=== PATIENT | female | born 1955 | race Caucasian/White ===

== ENCOUNTER 2017-02-14 22:20 | Inpatient (IN) | payer OTHER ==
[~2017-02-14] VITALS: Ht 162.6 cm; Wt 39.0 kg
--- NOTE | 2017-02-14 22:00 | NUR ---
Admitted patient in a stable condition from [facility]. Dx: L hip fracture, S/P ORIF. No acute distress, no complaints of pain at this time. Able to make needs known. Alert and oriented. Kept in a comfortable position. Call light within reach. Admission assessment started. Dr. Jenkins and [facility] made aware. Will continue to monitor.
[2017-02-14] MEDS ORDERED: MAGN30OR PO (23:27)
[2017-02-14] MEDS ORDERED: HYDR-3326 PO (23:27)
[2017-02-14] MEDS ORDERED: ONDA4TAB10 IVP (23:27)
[2017-02-14] MEDS ORDERED: ACET-73 PO (23:27)
[2017-02-14] MEDS ORDERED: PANT40TA4 PO (23:27)
[2017-02-14] MEDS ORDERED: ENOX40DI SQ (23:27)
[2017-02-14] MEDS ORDERED: ZOLP5TAB8 PO (23:27)
[2017-02-14] MEDS ORDERED: MORP15TA IV (23:27)
[2017-02-15] VITALS (12 sets, daily range): BP systolic 114–144; BP diastolic 75–99
[2017-02-15] MEDS ORDERED: ACETAMINOPHEN 325 MG TABLET PO PRN
[2017-02-15] MEDS ORDERED: ZOLPIDEM 5 MG TABLET PO PRN
[2017-02-15] MEDS ORDERED: BLOO-360 IN (02:37)
--- NOTE | 2017-02-15 06:56 | NUR ---
Patient went back to sleep with no s/s of distress. No complaints of pain. Slept well during the shift. Incision, amputation photos taken and placed in chart. Snacks offered. VS, including BS monitored. Frequent checks done. Due meds given. Needs attended. Call light kept within reach. Kept comfortable. Endorsed accordingly.
[2017-02-15 07:27] LABS: BASOPHILS % (AUTO) 0.4 % (0.0-2.0); EOSINOPHILS # (AUTO) 0.1 K/uL (0.0-0.7); EOSINOPHILS % (AUTO) 1.1 % (0.0-7.0); HEMOGLOBIN 7.2 G/DL (12.0-16.0); LYMPHOCYTES # (AUTO) 1.3 K/UL (0.8-4.8); LYMPHOCYTES % (AUTO) 28.6 % (20.5-51.5); MEAN CORPUSCULAR HEMOGLOBIN 29.7 UUG (27.0-31.0); MEAN CORPUSCULAR HGB CONC 34 g/dL (32.0-37.0); MEAN CORPUSCULAR VOLUME 88.1 FL (81.0-99.0); MONOCYTES # (AUTO) 0.4 K/UL (0.1-1.30); MONOCYTES % (AUTO) 8.7 % (0.0-11.0); NEUTROPHILS # (AUTO) 2.8 K/UL (1.8-8.9); NEUTROPHILS % (AUTO) 61.2 % (38.5-71.5); PLATELET COUNT (AUTO) 219 K/UL (150-450); WHITE BLOOD COUNT (AUTO) 4.6 K/UL (4.0-11.2)
[2017-02-15 07:28] LABS: HEMATOCRIT 21.3 % (37-47); RED BLOOD CELL COUNT(AUTO) 2.41 MIL/UL (4.2-5.4)
--- NOTE | 2017-02-15 07:28 | NUR ---
Critical result of Hemoglobin 7.[address] Lopez was called waiting for call back.
--- NOTE | 2017-02-15 07:45 | NUR ---
Received new orders from Dr. Lopez to transfuse 2 units of PRBC and Hold Lovenox for today, Mod Sliding scale with Humalin regular insulin.
[2017-02-15 07:48] LABS: CREATININE 0.7 mg/dL (0.6-1.3); MAGNESIUM 1.9 mg/dL (1.8-2.4); PHOSPHOROUS 2.9 mg/dL (2.5-4.9); POTASSIUM 3.6 mmol/L (3.5-5.1)
[2017-02-15] MEDS ORDERED: INSULIN REGULAR, HUMAN 300 UNIT/3 ML VIAL SQ SCH (08:15)
--- NOTE | 2017-02-15 08:21 | NUR ---
Received pt in bed, a/ox3, No respiratory distress noted. HOB elevated, Left hip surgical dressing clean, intact and patent. No s/s of bleeding at site noted. Call light within reach. Pt educated on plan for the day.
[2017-02-15] MEDS: PANTOPRAZOLE SODIUM 40 MG TABLET.DR PO SCH (08:35)
[2017-02-15] MEDS ORDERED: ENOXAPARIN SODIUM 40 MG/0.4 ML DISP.SYRIN SQ SCH (09:00)
[2017-02-15] MEDS ORDERED: INSULIN REGULAR, HUMAN 300 UNIT/3 ML VIAL SQ PRN (09:30)
[2017-02-15] MEDS: BLOOD SUGAR DIAGNOSTIC 1 EACH STRIP VI SCH ×4 (09:30→21:54)
[2017-02-15] MEDS ORDERED: DEXTROSE 50% 50 ML DISP.SYRIN IV PRN (09:30)
[2017-02-15] MEDS ORDERED: INSULIN REGULAR, HUMAN 300 UNITS/3 ML VIAL SQ PRN (09:30)
--- NOTE | 2017-02-15 11:37 | NUR ---
IV 20G started on right hand, pt tolerated well. Daughter is at bedside updated on plan of care and blood transfusion order.
--- NOTE | 2017-02-15 13:48 | NUR ---
Pt ambulating with physical therapy. No distress noted.
--- NOTE | 2017-02-15 15:30 | NUR ---
No urine output noted. Noted with bladder distension. Bladder scan show 750ml. Obtain order for straight cath, 900ml clear yellow urine output. Will con't to monitor for retention.
--- NOTE | 2017-02-15 15:50 | NUR ---
First unit of PRBC initiated, verified with 2nd RN. Vital signs checked per protocol. No adverse reaction noted. Will con't to monitor. Daughter is at bedside.
--- NOTE | 2017-02-15 18:27 | NUR ---
First unit of Blood completed, Pt tolerated well. No adverse reaction noted. v/s done per protocol.
--- NOTE | 2017-02-15 18:52 | NUR ---
2nd unit of blood started, verified by 2nd RN, vital signs taken per protocol. Pt c/o of nause prior to transfusion. Order obtain for Zofran by dr. Lopez
--- NOTE | 2017-02-15 19:10 | NUR ---
RECEIVED PATIENT IN BED ALERT ORIENTED, BLOOD TRANSFUSION IN PROGRESS, NO ADVERSE REACTION NOTED, NO COUGHING NO CONGESTION NOTED, V/S STABLE CONT TO MONITOR.
--- NOTE | 2017-02-15 19:11 | NUR ---
1908 vital signs wnl see Blood transfusion record. Dr. Lopez in to assess pt. Notified of pt c/o of constipation. Wilcox cath 16 fr. inserted as order. Daughter is at bedside. discussed plan of care with pt and daughter.
--- NOTE | 2017-02-15 21:23 | NUR ---
TRANSFUSION DONE WITH NO ADVERSE REACTION NOTED, NO COUGHING, NO CONGESTION NOTED, CONT TO MONITOR.
[2017-02-15 22:30] LABS: *BILIRUBIN,URIN NEGATIVE (NEGATIVE); *BLOOD, URINE 2+ (NEGATIVE); *COLOR,URINE YELLOW (YELLOW); *KETONES,URINE NEGATIVE (NEGATIVE); *PROTEIN,URINE TRACE (NEGATIVE); *UROBILINOGEN,URINE 0.2 E.U./dl (NORMAL); LEUKOCYTE ESTERASE ,URINE TRACE (NEGATIVE); NITRITE, URINE NEGATIVE (NEGATIVE); UGLUCOSE NEGATIVE (NEGATIVE)
[2017-02-15 22:44] LABS: *CLARITY,URINE HAZY (CLEAR)
[2017-02-15 22:48] LABS: YEAST,URINE MANY /HPF (NONE SEEN)
[2017-02-15 22:49] LABS: MUCUS,URINE MODERATE /LPF (0-FEW)
[2017-02-15] MEDS: PROMETHAZINE HCL 25 MG SUPP.RECT RC PRN (22:54)
[2017-02-15] MEDS: POTASSIUM CHLORIDE 20 MEQ in IV D5 1/2 NS 1000 ML 1,000 ML IV PRN (22:54)
--- NOTE | 2017-02-15 22:54 | NUR ---
PATIENT VOMITED APPROX. 300CC UNDIGESTED FOOD, UNABLE HOLD FOOD, GIVEN PHENERGAN SUPP WITH HELP AFTER HOUR, NO FURTHER EPISODE OF VOMITING NOTED AT THIS TIME. CONT TO MONITOR.
[2017-02-15] MEDS ORDERED: PROMETHAZINE HCL 25 MG SUPP.RECT RC ONE (22:57)
--- NOTE | 2017-02-15 23:11 | NUR ---
NOTIFY DR. PEREZ THAT PATIENT VOMITTING, UNABLE TO HOLD FOOD OR FLUIDS, AND ALSO BLOOD SUGAR RUNNING LOW 66-68, HAS NEW ORDER.
[2017-02-16] MEDS: PANTOPRAZOLE SODIUM 40 MG TABLET.DR PO SCH (06:34)
[2017-02-16] MEDS: BLOOD SUGAR DIAGNOSTIC 1 EACH STRIP VI SCH ×4 (06:34→20:31)
[2017-02-16 07:36] LABS: BASOPHILS % (AUTO) 0.6 % (0.0-2.0); EOSINOPHILS % (AUTO) 0.5 % (0.0-7.0); HEMOGLOBIN 11.6 G/DL (12.0-16.0); LYMPHOCYTES # (AUTO) 1.4 K/UL (0.8-4.8); LYMPHOCYTES % (AUTO) 27.5 % (20.5-51.5); MEAN CORPUSCULAR HEMOGLOBIN 29.7 UUG (27.0-31.0); MEAN CORPUSCULAR HGB CONC 34 g/dL (32.0-37.0); MEAN CORPUSCULAR VOLUME 86.8 FL (81.0-99.0); MONOCYTES # (AUTO) 0.5 K/UL (0.1-1.30); MONOCYTES % (AUTO) 9.6 % (0.0-11.0); NEUTROPHILS % (AUTO) 61.8 % (38.5-71.5); PLATELET COUNT (AUTO) 220 K/UL (150-450); RED BLOOD CELL COUNT(AUTO) 3.92 MIL/UL (4.2-5.4); WHITE BLOOD COUNT (AUTO) 4.9 K/UL (4.0-11.2)
[2017-02-16] MEDS ORDERED: IOHEXOL 300MG/ML 100 ML INFUS..BTL ONE (07:36)
[2017-02-16] MEDS ORDERED: BARIUM SULFATE 450 ML ORAL.SUSP ONE (07:36)
[2017-02-16] MEDS ORDERED: IV NORMAL SALINE 250 ML IV ONE (07:36)
--- NOTE | 2017-02-16 07:45 | NUR ---
PATIENT AWAKE, VERBALLY RESPONSIVE, CONT NPO, ON HYDRATION TOLERATE WELL, NO COUGHING, NO CONGESTION NOTED, NO COMPLAIN OF PAIN AT THIS TIME, LEFT HIP DRESSING INTACT, CONSENT OBTAINED FROM THE PATIENT. FOR CT SCAN TODAY, ENDORSED TO NEXT SHIFT
--- NOTE | 2017-02-16 08:00 | NUR ---
RECEIVED PATIENT AWAKE, ALERT AND ORIENTED. NO COMPLAINTS OF PAIN NOTED. NO S/S OF DISTRESS. WITH ONGOING D5NS KCL 20 MEQ INFUSING 70CC/HR ON LEFT HAND G 20. WITH PATENT INTACT IFC DRAINING TO YELLOW COLORED URINE. NO VOMITING NOTED. ENCOURAGED TO MAINTAIN NPO STATUS. INSTRUCTED BY FIELD APPRAISER TO CONSUME BARIUM TOLERATED. FOR CT SCAN OF ABDOMEN WITH CONTRAST AT 10 AM.
[2017-02-16 08:09] LABS: CREATININE 0.7 mg/dL (0.6-1.3)
[2017-02-16 08:12] LABS: THYROID STIMULATING HORMONE 0.95 mIU/mL (0.358-3.740)
[2017-02-16 08:26] LABS: BILIRUBIN,TOTAL 0.8 mg/dL (0.2-1.0); MAGNESIUM 1.7 mg/dL (1.8-2.4); PHOSPHOROUS 2.6 mg/dL (2.5-4.9); POTASSIUM 3.6 mmol/L (3.5-5.1); TOTAL PROTEIN, SERUM 5.7 g/dL (6.4-8.2)
[2017-02-16 08:39] VITALS: BP 131/87
--- NOTE | 2017-02-16 12:00 | NUR ---
BACK TO ARU FROM CT SCAN. ACCOMPANIED BY HOSPITAL STAFF VIA WHEEL CHAIR. ABLE TO TOLERATE LUNCH, NO NAUSEA OR VOMITING NOTED.
--- NOTE | 2017-02-16 12:10 | NUR ---
COMPLAINED OF PAIN ON LOWER EXTREMITIES RATED 6/10. TYLENOL PRN GIVEN.
[2017-02-16] MEDS ORDERED: MAGNESIUM OXIDE 400 MG TABLET PO ONE (15:00)
[2017-02-16] MEDS: POTASSIUM CHLORIDE 20 MEQ in IV D5 1/2 NS 1000 ML 1,000 ML IV PRN (16:38)
--- NOTE | 2017-02-16 18:12 | NUR ---
No complaints of pain at the moment. Able to eat dinner at least 30%. No complaints of nausea during meals. Was able to tolerate therapy well. With Intact Wilcox Catheter. Patent IVF infusing well 70 cc/hr.
[2017-02-16] MEDS ORDERED: Z GUARD REMEDY PASTE 57 GM TUBE TOP PRN (19:00)
--- NOTE | 2017-02-16 19:45 | NUR ---
RECEIVED PATIENT AWAKE IN BED WITH FAMILY AT BEDSIDE. PATIENT IS A/O X4. TAJIK SPEAKING BUT ABLE TO MAKE SIMPLE NEEDS KNOWN. PER DAUGHTER, PATIENT DENIES ANY PAIN OR DISCOMFORT. PATIENT JUST COMPLAINS OF NOT BEING ABLE TO HAVE A BOWEL MOVEMENT. PATIENT IS DRINKING PRUNE JUICE. VS WNL. DRESSING NOTED TO LEFT HIP, DRY AND INTACT. NEURO-VASCULAR CHECKS WNL. NO RESP. DISTRESS NOTED. IVF INFUSING WELL TO LEFT HAND #20 GAUGE. BED ALARM ON. CALL LIGHT IN REACH. ALL NEEDS ATTENDED. WILL CONTINUE TO MONITOR.
[2017-02-16 20:11] VITALS: BP 121/81
[2017-02-16] MEDS ORDERED: FLUCONAZOLE 200 MG/100 ML PIGGYBACK ONE (23:38)
[2017-02-16] MEDS: FLUCONAZOLE 200 MG/NS 100ML IV 100 MG in PREMIXED 1 EACH IV SCH (23:57)
--- NOTE | 2017-02-16 23:57 | NUR ---
Patient with new orders for Diflucan 100mg IV piggyback. Orders noted and carried out. Patient given Diflucan 100mg IV as ordered per MD. Tolerated well. IV patent and intact. No infiltration noted. Kept clean and dry. All needs attended to promptly. Call light within reach. Will continue to monitor.
--- NOTE | 2017-02-17 05:48 | NUR ---
PATIENT ASLEEP IN BED. EASILY AROUSABLE. DENIES PAIN OR DISCOMFORT. NO FACIAL GRIMACE NOTED. DRESSING NOTED TO LEFT HIP, C/D/I. NO RESP. DISTRESS NOTED. IVF INFUSING WELL. F/C INTACT AND DRAINING WELL. BED ALARM ON. CALL LIGHT IN REACH. ALL NEEDS ATTENDED. WILL CONTINUE TO MONITOR.
[2017-02-17] MEDS: PANTOPRAZOLE SODIUM 40 MG TABLET.DR PO SCH (06:29)
[2017-02-17] MEDS: BLOOD SUGAR DIAGNOSTIC 1 EACH STRIP VI SCH ×4 (06:31→22:22)
[2017-02-17] MEDS: HYDROCODONE/APAP 5-325MG TABLET PO PRN (06:34)
--- NOTE | 2017-02-17 07:46 | NUR ---
Received patient awake, alert and oriented. Not in any form of distress. With patent, intact Wilcox draining to yellow colored urine. With IVF infusing well over L hand G20. Encouraged to eat breakfast. Call light within reach.
[2017-02-17] MEDS: POTASSIUM CHLORIDE 20 MEQ in IV D5 1/2 NS 1000 ML 1,000 ML IV PRN (07:51)
[2017-02-17] MEDS ORDERED: CYANOCOBALAMIN 1000 MCG/ML VIAL IM SCH (09:00)
[2017-02-17 09:14] VITALS: BP 123/85
--- NOTE | 2017-02-17 10:31 | NUR ---
Complained of pain over left hip rated as 6/10. Tylenol PRN given. Tolerated occupational therapy. Resumed IVF
[2017-02-17 12:09] LABS: VIT D, 25-HYDROXY 12.3 ng/mL (30.0-100.0)
--- NOTE | 2017-02-17 15:00 | NUR ---
IV INFILTRATED, STARTED NEW IV LINE ON RIGHT FOREARM. PATENT, IVF INFUSING WELL. FAMILY AT BEDSIDE.
--- NOTE | 2017-02-17 17:15 | NUR ---
Seen and examined by John Huizar. Informed Dr. Lopez of no BM for 4 days, no recommendations for stool softeners at this time, contemplating to refer patient for a Gastro Evaluation for possible EGD/Colonoscopy.
[2017-02-17] MEDS: ONDANSETRON 4 MG/2 ML VIAL IV PRN (17:41)
--- NOTE | 2017-02-17 17:56 | NUR ---
Vomited 1x previously ingested food. Nausea present. No complaints of abdominal pain. PRN Zofran given.
--- NOTE | 2017-02-17 19:48 | NUR ---
Patient noted in a stable condition.report received from Latha Bucio .patient noted resting in bed,patient will continue to be monitored at this time .
[2017-02-17 20:24] VITALS: BP 128/90
[2017-02-17] MEDS: FLUCONAZOLE 200 MG/NS 100ML IV 100 MG in PREMIXED 1 EACH IV SCH (22:25)
--- NOTE | 2017-02-17 22:40 | NUR ---
RECEIVED PATIENT LAYING COMFORTABLY IN BED. NO ACUTE DISTRESS NOTED. SAFETY INITIATED. CALL LIGHT WITHIN REACH. WILL CONTINUE TO MONITOR.
[2017-02-18] MEDS: POTASSIUM CHLORIDE 20 MEQ in IV D5 1/2 NS 1000 ML 1,000 ML IV PRN ×2 (01:51→19:24)
[2017-02-18] MEDS: PANTOPRAZOLE SODIUM 40 MG TABLET.DR PO SCH (06:14)
--- NOTE | 2017-02-18 06:37 | NUR ---
NO CHANGES T/O SHIFT. NO ACUTE DISTRESS NOTED. SAFETY AND COMFORT MEASURES MAINTAINED T/O SHIFT. ALL NEEDS MET. ALL MEDS GIVEN ORDERED. COTTER CARE PROVIDED.
[2017-02-18 08:25] VITALS: BP 135/91
[2017-02-18] MEDS: CYANOCOBALAMIN 1000 MCG/ML VIAL IM SCH (08:57)
[2017-02-18] MEDS: ONDANSETRON 4 MG/2 ML VIAL IV PRN (12:02)
--- NOTE | 2017-02-18 12:30 | NUR ---
pt had an episode of vomiting while eating. pt provided zofran iv. will reassess from complications.
[2017-02-18] MEDS: CHOLECALCIFEROL 1,000 UNIT TABLET PO SCH (12:33)
--- NOTE | 2017-02-18 13:00 | NUR ---
pt still had persistent nausea. pt seen by employment consultant. employment consultant recommended boost. pt states that she is worried she might throw up again and is afraid of eating because of it. informed patient that antiemetic is available. pt educated about malnutrition and verbalizes understanding. md also called for constipation. md ferro states for further monitoring.
--- NOTE | 2017-02-18 19:41 | NUR ---
pt had episodes of vomity. pt given meds as prescribed. pt did therapy and tolerated. pt no signs of acute distress. comfort meausres and air mattress provided. will continue to endorse new orders to night shift supervisor nurse.
[2017-02-18 20:00] VITALS: BP 125/86
--- NOTE | 2017-02-18 20:00 | NUR ---
RECEIVED PATIENT AWAKE IN BED WITH FAMILY AT BEDSIDE. PATIENT IS A/O X4. FRENCH SPEAKING BUT ABLE TO MAKE NEEDS KNOWN. PATIENT DENIES PAIN OR DISCOMFORT. PT DOES C/O SLIGHT NAUSEA BUT DENIES THE NEED FOR ANY ZOFRAN AT THIS TIME. VS WNL. IVF INFUSING WELL TO RIGHT FA #20 GAUGE. DRESSING NOTED TO LEFT HIP, C/D/I. REDNESS NOTED TO SACRAL AREA, MEPILEX IN PLACE AND PATIENT IS ON AIR MATTRESS FOR PRESSURE RELIEF. PATIENT IS ON RA. BED ALARM ON. PATIENT MADE COMFORTABLE. CALL LIGHT IN REACH. ALL NEEDS ATTENDED. WILL CONTINUE TO MONITOR.
[2017-02-18] MEDS: FLUCONAZOLE 200 MG/NS 100ML IV 100 MG in PREMIXED 1 EACH IV SCH (22:30)
[2017-02-18] MEDS: HYDROCODONE/APAP 5-325MG TABLET PO PRN (23:04)
--- NOTE | 2017-02-19 00:15 | NUR ---
PATIENT ASLEEP IN BED. EASILY AROUSABLE. PATIENT REPOSITIONED TO SIDE FOR COMFORT. BILATERAL HEELS OFF-LOADED FOR PRESSURE RELIEF. DRESSINGS NOTED TO LEFT HIP, CHANGED. MEPILEX NOTED TO SACRUM, CHANGED AND Z-GUARD APPLIED. PATIENT MADE COMFORTABLE. BED ALARM ON. CALL LIGHT IN REACH. ALL NEEDS ATTENDED.
[2017-02-19] MEDS ORDERED: BISACODYL 10 MG SUPP.RECT RC PRN (00:30)
[2017-02-19] MEDS: HYDROCODONE/APAP 5-325MG TABLET PO PRN (06:06)
[2017-02-19] MEDS: PANTOPRAZOLE SODIUM 40 MG TABLET.DR PO SCH (06:06)
--- NOTE | 2017-02-19 06:16 | NUR ---
PATIENT AWAKE IN BED. C/O PAIN IN LEFT HIP. REPOSITIONED TO SIDE FOR COMFORT AND PRESSURE RELIEF. PATIENT GIVEN NORCO 1 TAB PO PRN FOR PAIN. SLEPT WELL THROUGHOUT THE NIGHT. BED ALARM ON. CALL LIGHT IN REACH. ALL NEEDS ATTENDED. WILL CONTINUE TO MONITOR.
[2017-02-19 07:02] LABS: BASOPHILS % (AUTO) 0.5 % (0.0-2.0); EOSINOPHILS % (AUTO) 0.6 % (0.0-7.0); HEMATOCRIT 36.6 % (37-47); HEMOGLOBIN 12.1 G/DL (12.0-16.0); LYMPHOCYTES # (AUTO) 1.3 K/UL (0.8-4.8); LYMPHOCYTES % (AUTO) 32.1 % (20.5-51.5); MEAN CORPUSCULAR HEMOGLOBIN 28.8 UUG (27.0-31.0); MEAN CORPUSCULAR HGB CONC 33 g/dL (32.0-37.0); MEAN CORPUSCULAR VOLUME 86.9 FL (81.0-99.0); MONOCYTES # (AUTO) 0.3 K/UL (0.1-1.30); MONOCYTES % (AUTO) 7.4 % (0.0-11.0); NEUTROPHILS # (AUTO) 2.5 K/UL (1.8-8.9); NEUTROPHILS % (AUTO) 59.4 % (38.5-71.5); PLATELET COUNT (AUTO) 270 K/UL (150-450); RED BLOOD CELL COUNT(AUTO) 4.21 MIL/UL (4.2-5.4); WHITE BLOOD COUNT (AUTO) 4.1 K/UL (4.0-11.2)
[2017-02-19 07:10] VITALS: BP 141/82
[2017-02-19 07:42] LABS: BILIRUBIN,TOTAL 0.7 mg/dL (0.2-1.0); CREATININE 0.7 mg/dL (0.6-1.3); MAGNESIUM 1.7 mg/dL (1.8-2.4); PHOSPHOROUS 2.7 mg/dL (2.5-4.9); POTASSIUM 4.1 mmol/L (3.5-5.1); TOTAL PROTEIN, SERUM 6.3 g/dL (6.4-8.2)
--- NOTE | 2017-02-19 08:00 | NUR ---
RECEIVED PATIENT AWAKE RESTING IN BED. ALERT AND ORIENTED X4. NO COMPLAINTS OF PAIN AT THIS TIME. NOT IN ANY FORM OF DISTRESS. CALL LIGHT WITHIN REACH. WITH INTACT COTTER DRAINING TO YELLOW COLORED URINE. WITH PATENT IV INFUSING WELL OVER RIGHT FOREARM.
--- NOTE | 2017-02-19 09:10 | NUR ---
STILL WITH NO BM. DULCOLAX SUPPOSITORY GIVEN.
[2017-02-19] MEDS: CHOLECALCIFEROL 1,000 UNIT TABLET PO SCH (09:39)
[2017-02-19] MEDS: CYANOCOBALAMIN 1000 MCG/ML VIAL IM SCH (09:39)
[2017-02-19] MEDS: POTASSIUM CHLORIDE 20 MEQ in IV D5 1/2 NS 1000 ML 1,000 ML IV PRN (11:22)
--- NOTE | 2017-02-19 13:03 | NUR ---
Senior Oracle Database Administrator: SW met with patient at bedside to assess needs and provide support. Pt is a 61-year-old female admitted to ARU for impaired ambulation and functional decline. Pt is mainly Kazakh speaking, however speaks some Amharic. Per pt, she lives at home with her family who are reported to be very supportive. Pt reports that her and adult children are helpful at home. She reported her goal is to return home and be independent again. Per pt, prior to be hospitalized she was independent with her ADL's. Per chart, pt has a hx of severe depression but did not report this during interview. SW encouraged pt to comply with rehab goals and provided supportive counseling. SW will speak with family to determine if pt is following a mental health provider, if not referrals will be provided. SW engaged in active listening and provided emotional support.
--- NOTE | 2017-02-19 14:20 | NUR ---
VOMITED X1 PREVIOUSLY INGESTED FOOD. WITH NAUSEA PRESENT. NO ABDOMINAL PAIN. STILL WITH NO BM. ZOFRAN IV GIVEN
[2017-02-19] MEDS: ONDANSETRON 4 MG/2 ML VIAL IV PRN (14:21)
[2017-02-19] MEDS ORDERED: MAGNESIUM OXIDE 400 MG TABLET PO ONE (14:30)
[2017-02-19] MEDS: PROMETHAZINE HCL 25 MG SUPP.RECT RC PRN (18:23)
--- NOTE | 2017-02-19 18:44 | NUR ---
PATIENT VOMITED 1X PREVIOUSLY INGESTED FOOD. PHENERGAN 1 SUPP GIVEN. PATIENT HAD 1X BOWEL MOVEMENT, STOOL SAMPLE SENT TO LAB FOR OCCULT BLOOD.
[2017-02-19 20:00] VITALS: BP_SYST 136; BP_SYST 154; BP_DIAS 71
--- NOTE | 2017-02-19 20:00 | NUR ---
RECEIVED PATIENT AWAKE IN BED WITH FAMILY AT BEDSIDE. PATIENT IS A/O X4. SERBIAN SPEAKING BUT ABLE TO MAKE NEEDS KNOWN. PATIENT DENIES PAIN OR DISCOMFORT. DENIES ANY N/V. VS WNL. IVF INFUSING WELL TO RIGHT FA #20 GAUGE. DRESSING NOTED TO LEFT HIP, C/D/I. REDNESS NOTED TO SACRAL AREA, MEPILEX IN PLACE AND PATIENT IS ON AIR MATTRESS FOR PRESSURE RELIEF. PATIENT IS ON RA. BED ALARM ON. PATIENT MADE COMFORTABLE. CALL LIGHT IN REACH. ALL NEEDS ATTENDED. WILL CONTINUE TO MONITOR.
[2017-02-19] MEDS: FLUCONAZOLE 200 MG/NS 100ML IV 100 MG in PREMIXED 1 EACH IV SCH (23:11)
[2017-02-20] MEDS: POTASSIUM CHLORIDE 20 MEQ in IV D5 1/2 NS 1000 ML 1,000 ML IV PRN ×2 (01:52→16:54)
--- NOTE | 2017-02-20 05:54 | NUR ---
PATIENT ASLEEP IN BED. SLEPT WELL THROUGHOUT THE NIGHT. DRESSING NOTED TO LEFT HIP, LEFT LATERAL THIGH AND SACRUM CHANGED. PICTURES TAKEN AND PLACED IN CHART. NO S/S OF PAIN OR DISCOMFORT. NO FACIAL GRIMACE NOTED. IVF INFUSING WELL TO RIGHT FA. PATIENT HAD A LARGE LOOSE BM EARLIER. BED ALARM ON. CALL LIGHT IN REACH. WILL CONTINUE TO MONITOR, ALL NEEDS ATTENDED.
[2017-02-20] MEDS: PANTOPRAZOLE SODIUM 40 MG TABLET.DR PO SCH (06:27)
--- NOTE | 2017-02-20 08:00 | NUR ---
Received patient awake resting in bed, with intact Wilcox catheter and IV infusing well over right hand. No complaints of pain. Not in any form of distress.
[2017-02-20 08:08] VITALS: BP 139/91
[2017-02-20] MEDS: CYANOCOBALAMIN 1000 MCG/ML VIAL IM SCH (09:35)
[2017-02-20] MEDS: CHOLECALCIFEROL 1,000 UNIT TABLET PO SCH (09:35)
--- NOTE | 2017-02-20 14:29 | NUR ---
REHAB TEAM CONFERENCE 02/20/17
--- NOTE | 2017-02-20 18:00 | NUR ---
Patient resting in bed. With relatives at bed side. Tolerated meal, no vomiting noted. But with some nausea. Call light within reach.
[2017-02-20 20:53] VITALS: BP 122/81
[2017-02-20] MEDS: FLUCONAZOLE 200 MG/NS 100ML IV 100 MG in PREMIXED 1 EACH IV SCH (23:45)
[2017-02-21] MEDS: PANTOPRAZOLE SODIUM 40 MG TABLET.DR PO SCH (07:15)
[2017-02-21] MEDS: CYANOCOBALAMIN 1000 MCG/ML VIAL IM SCH (09:05)
[2017-02-21] MEDS: PROMETHAZINE HCL 25 MG SUPP.RECT RC PRN ×2 (09:05→09:11)
[2017-02-21 09:10] VITALS: BP 144/91
[2017-02-21] MEDS: ONDANSETRON 4 MG/2 ML VIAL IV PRN ×2 (09:13→13:15)
[2017-02-21] MEDS: POTASSIUM CHLORIDE 20 MEQ in IV D5 1/2 NS 1000 ML 1,000 ML IV PRN (09:25)
[2017-02-21] MEDS: CHOLECALCIFEROL 1,000 UNIT TABLET PO SCH (09:39)
[2017-02-21] MEDS: HYDROCODONE/APAP 5-325MG TABLET PO PRN (11:29)
--- NOTE | 2017-02-21 11:35 | NUR ---
Pt. c/o nausea this am Zofran given per Mar with some effectiveness, Logan. small amounts of oral intake. P.T. session this am. C/o moderate pain and [place] given per sep with some apple sauce. Pt. resting in bed. Aby Tilley called for Italian translation. Addendum: 02/21/17 at 1153 by AISHA TORRES RN Amended: Links added.
--- NOTE | 2017-02-21 13:18 | NUR ---
WOUND CARE CONSULT PATIENT SEEN AND SKIN INTEGRITY ASSESSMENT DONE. PATIENT PRESENTS WITH SACRAL BLANCHABLE REDNESS, INTACT SKIN. PATIENT PRESENTS WITH LEFT HIP POST OPEN INCISIONS WITH DRESSINGS DRY AND INTACT AT THIS TIME. PATIENT WITH CURRENT MARJORIE AT 13, PATIENT IS ABLE TO REPOSITION HERSELF IN BED AND ABLE TO TURNING FROM SIDE TO SIDE, BUT DOES NEED PROMPTING. PATIENT IS VERY THIN AND FRAIL AND BONY. FOR THE SACRAL AREA RECOMMEND CONTINUE USE OF Z GUARD FOR SKIN/MOISTURE MANAGEMENT AND USE OF MEPILEX TO PROTECT. ALL DISCUSSED WITH NURSING STAFF AT THE BEDSIDE. PATIENT ON 1ST STEP LOW AIRLOSS MATTRESS FOR SKIN MANAGMENT. MD IN AGREEMENT WITH PLAN OF CARE. WILL DEFER LEFT HIP POST OP SITES TO ORTHO/REHAB MD AT THIS TIME.
--- NOTE | 2017-02-21 18:58 | NUR ---
report received from day shift nurse sourav 2 4300. pt dressing changed. wound showed no signs of infection. pt is stable. no new orders. report given to community health coordinator nurse rose.
--- NOTE | 2017-02-21 20:00 | NUR ---
RECEIVED PATIENT AWAKE IN BED WITH VISITORS AT BEDSIDE. PATIENT IS A/OX 4. TURKS AND CAICOS ISLANDER SPEAKING BUT ABLE TO MAKE NEEDS KNOW. F/C INTACT AND DRAINING TO GRAVITY. IVF INFUSING WELL TO LEFT FA #20 GAUGE. VS WNL. NO RESP. DISTRESS. DENIES PAIN. PATIENT NOTED ON AIR MATTRESS. DRESSING NOTED TO LEFT HIP, C/D/I. BED ALARM ON. CALL LIGHT IN REACH. ALL NEEDS ATTENDED. WILL CONTINUE TO MONITOR AND ASSESS.
[2017-02-21 21:54] VITALS: BP 139/86
--- NOTE | 2017-02-21 22:30 | NUR ---
URINE COLLECT VIA COTTER PORT AND SENT TO LAB FOR UA AND URINE CULTURE ORDERED PER DR. ESTEBAN. ALL NEEDS ATTENDED.
[2017-02-21 22:40] LABS: *BILIRUBIN,URIN NEGATIVE (NEGATIVE); *BLOOD, URINE 1+ (NEGATIVE); *CLARITY,URINE CLOUDY (CLEAR); *COLOR,URINE STRAW (YELLOW); *KETONES,URINE NEGATIVE (NEGATIVE); *PROTEIN,URINE NEGATIVE (NEGATIVE); LEUKOCYTE ESTERASE ,URINE 2+ (NEGATIVE); NITRITE, URINE POSITIVE (NEGATIVE); PH,URINE 7.5 (5.0-8.0); UGLUCOSE NEGATIVE (NEGATIVE)
[2017-02-21 22:54] LABS: BACTERIA,URINE MANY /HPF (NONE SEEN); RBC,URINE 0-3 /HPF (0-3); SQUAMOUS EPITHELIAL CELL,UR FEW /HPF (NONE SEEN); WBC,URINE 20-50 /HPF (0-3)
[2017-02-21] MEDS: FLUCONAZOLE 200 MG/NS 100ML IV 100 MG in PREMIXED 1 EACH IV SCH (23:46)
[2017-02-22] MEDS: POTASSIUM CHLORIDE 20 MEQ in IV D5 1/2 NS 1000 ML 1,000 ML IV PRN ×2 (01:27→16:08)
[2017-02-22] MEDS: PANTOPRAZOLE SODIUM 40 MG TABLET.DR PO SCH (06:05)
--- NOTE | 2017-02-22 06:17 | NUR ---
PATIENT AWAKE IN BED. SLEPT WELL THROUGHOUT THE NIGHT. REPOSITIONED TO SIDE FOR COMFORT AND PRESSURE RELIEF. DRESSING NOTED TO LEFT HIP, LEFT LATERAL THIGH AND SACRUM, C/D/I. NO S/S OF PAIN OR DISCOMFORT. NO FACIAL GRIMACE NOTED. IVF INFUSING WELL TO RIGHT FA. BED ALARM ON. CALL LIGHT IN REACH. WILL CONTINUE TO MONITOR, ALL NEEDS ATTENDED.
[2017-02-22] MEDS: CHOLECALCIFEROL 1,000 UNIT TABLET PO SCH (08:18)
[2017-02-22] MEDS: CYANOCOBALAMIN 1000 MCG/ML VIAL IM SCH (08:18)
[2017-02-22 08:48] VITALS: BP 128/86
[2017-02-22 12:38] LABS: BASOPHILS % (AUTO) 0.6 % (0.0-2.0); EOSINOPHILS % (AUTO) 0.4 % (0.0-7.0); HEMOGLOBIN 12.1 G/DL (12.0-16.0); LYMPHOCYTES # (AUTO) 1.2 K/UL (0.8-4.8); LYMPHOCYTES % (AUTO) 20.5 % (20.5-51.5); MEAN CORPUSCULAR HEMOGLOBIN 28.6 UUG (27.0-31.0); MEAN CORPUSCULAR HGB CONC 33 g/dL (32.0-37.0); MEAN CORPUSCULAR VOLUME 87.3 FL (81.0-99.0); MONOCYTES # (AUTO) 0.3 K/UL (0.1-1.30); MONOCYTES % (AUTO) 5.7 % (0.0-11.0); NEUTROPHILS # (AUTO) 4.2 K/UL (1.8-8.9); NEUTROPHILS % (AUTO) 72.8 % (38.5-71.5); PLATELET COUNT (AUTO) 284 K/UL (150-450); RED BLOOD CELL COUNT(AUTO) 4.23 MIL/UL (4.2-5.4); WHITE BLOOD COUNT (AUTO) 5.7 K/UL (4.0-11.2)
[2017-02-22 12:42] LABS: CREATININE 0.7 mg/dL (0.6-1.3); POTASSIUM 4.5 mmol/L (3.5-5.1)
[2017-02-22 12:54] LABS: THYROID STIMULATING HORMONE 3.641 mIU/mL (0.358-3.740)
[2017-02-22 13:54] LABS: BILIRUBIN,TOTAL 0.5 mg/dL (0.2-1.0); MAGNESIUM 1.7 mg/dL (1.8-2.4); PHOSPHOROUS 2.9 mg/dL (2.5-4.9); TOTAL PROTEIN, SERUM 6.7 g/dL (6.4-8.2)
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
--- NOTE | 2017-02-22 19:56 | NUR ---
PATIENT AWAKE IN BED, TALKING ON THE PHONE. IVF INFUSING WELL TO RIGHT FA #20 GAUGE. DENIES PAIN. ON AIR MATTRESS. F/C INTACT AND DRAINING TO GRAVITY. BED ALARM ON. CALL LIGHT IN REACH. ALL NEEDS ATTENDED. WILL CONTINUE TO MONITOR AND ASSESS.
[2017-02-22 21:25] VITALS: BP 134/81
--- NOTE | 2017-02-22 21:30 | NUR ---
PATIENT AWAKE IN BED. OFFERED FOOD/SNACK. PATIENT STATED SHE LOVES CHICKEN SOUP. HAD MASTER WELDER BRING FROM [employer] AND PATIENT ATE THE WHOLE CUP OF CHICKEN NOODLE SOUP. WILL CONTINUE TO MONITOR.
[2017-02-22] MEDS: FLUCONAZOLE 200 MG/NS 100ML IV 100 MG in PREMIXED 1 EACH IV SCH (22:49)
--- NOTE | 2017-02-22 23:00 | NUR ---
SMALL AREA OF REDNESS AROUND IV SITE. INFILTRATED. REMOVED AND NEW IV STARTED TO LEFT UPPER #22 GAUGE. ALL NEEDS ATTENDED. WILL CONTINUE TO MONITOR.
[2017-02-23] MEDS: PANTOPRAZOLE SODIUM 40 MG TABLET.DR PO SCH (06:11)
--- NOTE | 2017-02-23 06:28 | NUR ---
PATIENT AWAKE IN BED. SLEPT WELL THROUGHOUT THE NIGHT. REPOSITIONED TO SIDE FOR COMFORT AND PRESSURE RELIEF. DRESSING NOTED TO LEFT HIP, LEFT LATERAL THIGH AND SACRUM, C/D/I. DENIES PAIN. IVF INFUSING WELL TO RIGHT UPPER ARM. BED ALARM ON. CALL LIGHT IN REACH. WILL CONTINUE TO MONITOR, ALL NEEDS ATTENDED.
--- NOTE | 2017-02-23 07:11 | NUR ---
Patient received from rodding anode worker, resting comfortably in bed, no signs of acute distress noted. VS WNL, no complaints of pain at this time. No other verbalized needs at this time, family observed at bedside, no needs noted. Safety and fall precautions maintained, call light within reach.
--- NOTE | 2017-02-23 08:00 | NUR ---
Call received from Dr. Donovan IBARRA regarding EGD scheduled for tomorrow. Orders received for diet order changed to clear liquids, Golytly bowel prep, consents for EGD and for colonoscopy, and NPO after midnight of 02/23. Will continue to endorse orders to next shift. Nursing zone supervisor firearms notified, Dr. Ryan notified.
[2017-02-23 08:05] VITALS: BP 140/70
[2017-02-23] MEDS ORDERED: GOLYTELY 4000 ML BOTTLE PO ONE (08:15)
[2017-02-23] MEDS: CHOLECALCIFEROL 1,000 UNIT TABLET PO SCH (08:37)
[2017-02-23] MEDS: CYANOCOBALAMIN 1000 MCG/ML VIAL IM SCH (08:37)
--- NOTE | 2017-02-23 09:00 | NUR ---
Douglas bowel prep started for patient. Consents signed, patient's observed sitting next to patient. Information explained with , and explained to patient via asphalt distributor operator phone. No verbalized questions at this time. Signed consents photo copied for paper chart. Continuing bowel prep for patient and clear liquid diet.
[2017-02-23] MEDS: POTASSIUM CHLORIDE 20 MEQ in IV D5 1/2 NS 1000 ML 1,000 ML IV PRN (13:18)
--- NOTE | 2017-02-23 19:30 | NUR ---
RECEIVED PATIENT AWAKE, ALERT, AND ORIENTED X3. PRIMARY LANGUAGE IS ROMANIAN, BUT UNDERSTANDS VERY LITTLE TURKMEN ALSO. CONTINUING TO DRINK GOLYTLY. INSTRUCTED TO PATIENT, THAT SHE NEEDS TO COMPLETE THE 4 LITER BOTTLE BY MIDNIGHT.PATIENT VERBALIZES GOOD UNDERSTANDING. NO BOWEL MOVEMENT THUS FAR.NO C/O DISCOMFORT OR ANY OTHER ISSUES AT THIS TIME. APPEARS COMFORTABLE IN SPECIAL AIR FLOW BED. REFUSING TO WEAR SCD'S AT THIS TIME. ENCOURAGED TO MOVE AND EXERCISE HER LEGS WHILE IN BED.ON CLEAR LIQUID DIET UNTIL MIDNIGHT, THEN WILL BE NPO. CALL LIGHT WITHIN REACH AAT
[2017-02-23 20:10] VITALS: BP 139/93
[2017-02-23] MEDS ORDERED: PIPERACILLIN/TAZOBACTAM/D5W 50 ML IV ONE (21:21)
[2017-02-23 21:49] VITALS: BP 139/93
[2017-02-23] MEDS: PIPERACILLIN/TAZOBACTAM/D5W 3.375 G in PREMIXED 1 EACH IV SCH (22:00)
[2017-02-23] MEDS: FLUCONAZOLE 200 MG/NS 100ML IV 100 MG in PREMIXED 1 EACH IV SCH (23:05)
[2017-02-24] MEDS: POTASSIUM CHLORIDE 20 MEQ in IV D5 1/2 NS 1000 ML 1,000 ML IV PRN ×2 (02:58→22:37)
--- NOTE | 2017-02-24 06:00 | NUR ---
DID NOT SLEEP TONIGHT. DOES NOT C/O PAIN OR N/V. TOLERATED 3800 ML OF GOLYTYLY, TAKEN BY MIDNIGHT. HAD 4 LARGE LIQUID STOOLS IN RESPONSE. BOWEL MOVEMENTS ARE NOW THIN BROWN COLORED FLUIDS.NPO AFTER MIDNIGHT MAINTAINED.. COMFORTABLE THIS MORNING WITHOUT C/O PAIN.
[2017-02-24] MEDS: PANTOPRAZOLE SODIUM 40 MG TABLET.DR PO SCH (06:11)
[2017-02-24] MEDS: PIPERACILLIN/TAZOBACTAM/D5W 3.375 G in PREMIXED 1 EACH IV SCH ×3 (06:30→22:31)
[2017-02-24] MEDS ORDERED: PIPERACILLIN/TAZOBACTAM/D5W 50 ML IV ONE (06:31)
--- NOTE | 2017-02-24 07:30 | NUR ---
RECIEVED PT LYING IN BED, HOB 35DEGREES UP. VERY PLEASAN, SPEAKS FARSI, AND UNDERSTANSTANDS LITTLE DANISH. VERY CACHEXIC, COLOR IS SLIGHTLY PALE. PT IS NPO FOR EGD AND COLONOSCOPY PROCEEDURE AT 3PM. BOTH CONSENTS ARE SIGNED BY PATIENT WITH AN SCRIPT MANAGER. MAIN IVF OF D51/2 NS WITH 20 MEQ KCL AT 70ML/HR INFUSING WELL. PT ON DIAPER, BEING INCONTINENT FROM THE PREP OF MCKAYLA. PT DENIES OF ANY PAIN. HAS A DRESSING ON THE LEFT HIP CLEAN, DRY, AND INTACT. HAS FOLEYCATHETER IN PLACE DRAINING CLEAR YELLOW URINE. AFEBRILE.
[2017-02-24 07:36] VITALS: BP 126/77
[2017-02-24] MEDS: CHOLECALCIFEROL 1,000 UNIT TABLET PO SCH (09:00)
--- NOTE | 2017-02-24 09:00 | NUR ---
PT ABLE TO TURN FROM SIDE TO SIDE. APPEARS SLOW AND WEAK. STATED THAT SHES HUNGRY. PT PAYROLL SECRETARY REDNESS ON THE SACRAL AREA. APPLIED ZGUARD AROUND THE RED AREA, ON A FIRST STEP MATTERESS.
--- NOTE | 2017-02-24 10:30 | NUR ---
SEEN AND EXAMINED BY DR ESTEBAN . NO ORDERS NOTED.
[2017-02-24] MEDS: CYANOCOBALAMIN 1000 MCG/ML VIAL IM SCH (11:17)
--- NOTE | 2017-02-24 14:50 | NUR ---
PRE-OPERATIVE CHECKLIST DONE. PT LEFT FOR SURGERY VIA BE WITH 2 RNS. CONDITION IS STABLE.
--- NOTE | 2017-02-24 17:00 | NUR ---
PTY IS BACK FROM THE GI LAB ACCOMPANIED BY 2 RNS. PT IS AWAKE AND ORIENTEDX3. DENIES OF ANY COMPLAINTS. PT IS PLACED ON A REGULAR DIET, PREFERS TO HAVE SOME CHICKEN SOUP. VSS. IVF IN PROGRESS.
--- NOTE | 2017-02-24 18:30 | NUR ---
PT IS CALM, NO APPARENT DISTRESS NOTED.
--- NOTE | 2017-02-24 19:30 | NUR ---
RECEIVED PATIENT AWAKE, ALERT, AND ORIENTED X3 WHEN SPOKEN TO IN INDONESIAN. NO C/O PAIN OR DISCOMFORT. HAD INCONTINENT OF LIQUID BROWN STOOL IN MODERATE AMOUNTS. JOEL CARE WITH PM CARE DONE. COTTER CATHETER CARE DONE. COTTER DRAINING CLOUDY YELLOW URINE.RIGHT UPPER ARM INFUSING IVF'S AT 70 ML/HR WITHOUT SIGNS OF INFILTRATION OR PHLEBITIS.TAKING PO LIQUIDS WHEN ENCOURAGED WITHOUT DIFFICULTY. CALL LIGHT WITHIN REACH AAT. ON SPECIAL AIR BED TO MAINTAIN SKIN INTEGRITY AND COMFORT
[2017-02-24 21:54] VITALS: BP 129/92
[2017-02-24] MEDS: FLUCONAZOLE 200 MG/NS 100ML IV 100 MG in PREMIXED 1 EACH IV SCH (22:32)
[2017-02-25] MEDS: PANTOPRAZOLE SODIUM 40 MG TABLET.DR PO SCH (06:33)
[2017-02-25] MEDS: PIPERACILLIN/TAZOBACTAM/D5W 3.375 G in PREMIXED 1 EACH IV SCH (06:33)
[2017-02-25] MEDS ORDERED: PANTOPRAZOLE SODIUM 40 MG TABLET.DR PO SCH (07:00)
[2017-02-25] MEDS: CHOLECALCIFEROL 1,000 UNIT TABLET PO SCH (08:25)
[2017-02-25] MEDS: MEGESTROL ACETATE 400 MG/10 ML LIQUID UDC PO SCH (13:05)
[2017-02-25] MEDS: POTASSIUM CHLORIDE 20 MEQ in IV D5 1/2 NS 1000 ML 1,000 ML IV PRN (14:47)
[2017-02-25] MEDS: LEVOFLOXACIN/D5W 250 MG in PREMIX 1 EA IV SCH (14:49)
--- NOTE | 2017-02-25 19:03 | NUR ---
pt had improved appetite with megace. pt requested extra food and director of clinical services states that she ate extra during shift. pt had different antibiotic on shift. pt had no signs of nausea and vomiting. pt still on iv fluids 20meq kcl. iv site patent . pt had bowel movements. pt site showed no signs of infections. site clean and intact. pt tolerated therapy and no signs of pain. will endorse new orders to shift supervisor film processing nurse.
--- NOTE | 2017-02-25 19:03 | NUR ---
Received bedside report from BOWEN Bond. Pt currently awake with family members at the bedside, very much responsive however can only speak minimal equatorial guinean (Mongolian).
[2017-02-25 20:00] VITALS: BP 138/81
--- NOTE | 2017-02-25 20:00 | NUR ---
Assessment done, denies any pain. Incision APPLIANCE WORKER,CDI at left hip.Pillows in between legs. No significant change. Continue monitor.
--- NOTE | 2017-02-26 | NUR ---
Pt found sound asleep, breathing normally. Continued a purposeful rounds.
--- NOTE | 2017-02-26 02:00 | NUR ---
Turned and repositioned.Remained on 1st step mattress.Heels off load w/ pillows.
[2017-02-26] MEDS: POTASSIUM CHLORIDE 20 MEQ in IV D5 1/2 NS 1000 ML 1,000 ML IV PRN ×2 (05:50→22:26)
--- NOTE | 2017-02-26 06:00 | NUR ---
Changed bag of D5 1/2 NS w/ 20 meq KCL at 70mls/hr. Pt easily awakened, encouraged to get more sleep. Discussed pt's plan for the day regarding having physical therapy.
[2017-02-26] MEDS: PANTOPRAZOLE SODIUM 40 MG TABLET.DR PO SCH (06:41)
--- NOTE | 2017-02-26 07:00 | NUR ---
Bedside report given to BOWEN Bond
[2017-02-26 07:30] VITALS: BP 153/103
[2017-02-26] MEDS: MEGESTROL ACETATE 400 MG/10 ML LIQUID UDC PO SCH (08:30)
[2017-02-26] MEDS: CHOLECALCIFEROL 1,000 UNIT TABLET PO SCH (08:31)
[2017-02-26] MEDS: LEVOFLOXACIN/D5W 250 MG in PREMIX 1 EA IV SCH (14:19)
--- NOTE | 2017-02-26 19:21 | NUR ---
pt continues to eat less even if discouraged because pt states that she is scared to have a high blood sugar. pt explained risks and benefits to adhering to diet regimen. pt continues to refuse. no new changes. vitals stable. adhered to therapy . will funminue to endorse to paul dacosta nurse.
[2017-02-26 20:00] VITALS: BP 136/81
[2017-02-26 20:15] VITALS: BP 125/70
[2017-02-27] MEDS: PANTOPRAZOLE SODIUM 40 MG TABLET.DR PO SCH (06:11)
[2017-02-27 08:00] VITALS: BP 137/84
[2017-02-27] MEDS: MEGESTROL ACETATE 400 MG/10 ML LIQUID UDC PO SCH (08:06)
[2017-02-27] MEDS: CHOLECALCIFEROL 1,000 UNIT TABLET PO SCH (08:07)
--- NOTE | 2017-02-27 08:49 | NUR ---
Received patient awake, alert and oriented x4. Not in any form of distress. No complaints of pain. With patent, intact Wilcox catheter draining to yellow colored urine. With intact IVF D5 NS 0.5 20 meq KCL at 70cc/HR.
[2017-02-27] MEDS: POTASSIUM CHLORIDE 20 MEQ in IV D5 1/2 NS 1000 ML 1,000 ML IV PRN (12:47)
--- NOTE | 2017-02-27 13:34 | NUR ---
REHAB IDT SUMMAMRY
[2017-02-27] MEDS: LEVOFLOXACIN/D5W 250 MG in PREMIX 1 EA IV SCH (14:36)
--- NOTE | 2017-02-27 15:15 | NUR ---
Tolerate therapy well. Showered with minimum assistance. No complaints of nausea at this time, tolerated lunch ate 80% of food. Encouraged small frequent meals. Assisted to needs promptly.
--- NOTE | 2017-02-27 20:20 | NUR ---
PT'S A/A/O X4,ON BED REST AT THIS TIME,DENIED OF PAIN OR ANY DISCOMFORT.ON IVF ORDER,PT TOLERATED WELL NOTED.CLEAN AND DRY AT THE INCISION SITE.ASSISTED FOR PM CARE.ENCOURAGED PT FOR ORAL INTAKE;EDUCATED TO PT,UPDATED THE PLAN OF CARE;SHE VERBALIZED UNDERSTANDING AND COOPERATIVE.F/C'S INTACT AND DRAINAGE WELL NOTED.KEPT COMFORT.CALL-LIGHT WITHIN REACH.
[2017-02-27 21:00] VITALS: BP 120/81
[2017-02-28] MEDS: POTASSIUM CHLORIDE 20 MEQ in IV D5 1/2 NS 1000 ML 1,000 ML IV PRN (04:40)
--- NOTE | 2017-02-28 06:10 | NUR ---
PT SLEPT WELL ON/OFF DURING OF THE NIGHT,DENIED OF PAIN OR ANY DISCOMFORT,TOLERATED WELL WITH MODERATE ASSISTANCE,ABLE TO TAKE ORAL INTAKE WELL.NO DISTRESS NOTED IN THE SHIFT.NO INFILTRATION AT THE IV SITE NOTED.
[2017-02-28] MEDS: PANTOPRAZOLE SODIUM 40 MG TABLET.DR PO SCH (06:27)
[2017-02-28] MEDS: CHOLECALCIFEROL 1,000 UNIT TABLET PO SCH (09:19)
[2017-02-28] MEDS: MEGESTROL ACETATE 400 MG/10 ML LIQUID UDC PO SCH (09:19)
[2017-02-28] MEDS ORDERED: LEVOFLOXACIN 250 MG TABLET PO SCH (14:00)
--- NOTE | 2017-02-28 17:33 | NUR ---
PATIENT DISCHARGED WITH SON AND DAUGHTER. NO NOTED DISTRESS. IV REMOVED. ID BANDS REMOVED. BELONGINGS RETURN. PRESCRIPTIONS GIVEN. HOME HEALTH CONFIRMED BY DAUGHTER. PATIENT EDUCATED ON DISCHARGE PLAN OF CARE. Addendum: 02/28/17 at 1734 by WIL ROSS RN DISCHARGE PHOTOS TAKEN.
== END 2017-02-28 16:00 | disposition home health service (06) | DRG 862 ==
PROVIDERS: ADMIT Physical Medicine & Rehabilitation Pain Medicine; ATTEND Physical Medicine & Rehabilitation Pain Medicine
PROC: 30233N1 Transfusion of Nonautologous Red Blood Cells into Peripheral Vein, Percutaneous Approach (ICD-10-PCS; principal; 2017-02-15)
DX: M80.052D Age-related osteoporosis with current pathological fracture, left femur, subsequent encounter for fracture with routine healing (principal); R64 Cachexia; E11.51 Type 2 diabetes mellitus with diabetic peripheral angiopathy without gangrene; B48.8 Other specified mycoses; E43 Unspecified severe protein-calorie malnutrition; E87.8 Other disorders of electrolyte and fluid balance, not elsewhere classified; E83.42 Hypomagnesemia; M81.0 Age-related osteoporosis without current pathological fracture; E55.9 Vitamin D deficiency, unspecified; E53.8 Deficiency of other specified B group vitamins; F43.23 Adjustment disorder with mixed anxiety and depressed mood; J47.9 Bronchiectasis, uncomplicated; J98.11 Atelectasis; K25.9 Gastric ulcer, unspecified as acute or chronic, without hemorrhage or perforation; K29.70 Gastritis, unspecified, without bleeding; K56.41 Fecal impaction; K82.8 Other specified diseases of gallbladder; M16.12 Unilateral primary osteoarthritis, left hip; R13.10 Dysphagia, unspecified; R62.7 Adult failure to thrive; Z87.891 Personal history of nicotine dependence; Z89.411 Acquired absence of right great toe; K62.89 Other specified diseases of anus and rectum; R19.5 Other fecal abnormalities
CPT/HCPCS: 36415; 71250; 82306; 82378; 83690; 83735; 84100; 84443; 85025; 86301; 86850; 86900; 86901; 86920; 87077; 87086; 92523; 97110; 97112; 97116; 97161; 97530; 97535; A4663; C1758; J1450; J1815; J1956; J2405; J2543; J3420; J3480; J3490; J7050; J8999; P9016-BL; P9021; Q9951; Q9967

== ENCOUNTER 2017-02-24 14:35 | Day surgery (SDC) | payer OTHER ==
[~2017-02-24 14:35] MED LIST: BLOO-360 IN; ENOX40DI SQ; HYDR-3326 PO; MAGN30OR PO; MORP15TA IV; ONDA4TAB10 IVP; PANT40TA4 PO; ZOLP5TAB8 PO
[2017-02-24] MEDS ORDERED: LIDOCAINE HCL 2% 20 ML VIAL MC ONE (14:36)
[2017-02-24] MEDS ORDERED: IV NORMAL SALINE 1000 ML BAG IV ONE (14:36)
[2017-02-24] MEDS ORDERED: PROPOFOL 200 MG/20 ML BOTTLE IV ONE (14:36)
== END 2017-02-24 16:56 | disposition still patient (30) ==
LOC: DS 14:35
PROVIDERS: ATTEND Physical Medicine & Rehabilitation Pain Medicine
DX: K56.41 Fecal impaction (principal); K21.9 Gastro-esophageal reflux disease without esophagitis; I73.9 Peripheral vascular disease, unspecified; E11.9 Type 2 diabetes mellitus without complications
CPT/HCPCS: 43239; 45378; 82962; A4217; J3490 ×2; J7030